=== PATIENT | female | born 1965 | race Caucasian/White ===

== ENCOUNTER 2016-09-09 05:27 | Emergency (ER) | payer BC ==
[~2016-09-09] VITALS: Ht 167.6 cm; Wt 77.2 kg
[2016-09-09] MEDS ORDERED: FLEXERIL5 MG PO (05:59)
[2016-09-09] MEDS ORDERED: LEVO-T75 MCG PO (05:59)
[2016-09-09] MEDS ORDERED: MELOXICAM15 MG PO (06:00)
[2016-09-09] MEDS ORDERED: LISINOPRIL20 MG PO (06:01)
[2016-09-09 06:43] VITALS: BP 118/76
== END 2016-09-09 06:43 | disposition home or self-care (01) ==
LOC: EME 05:27
DX: Z71.1 Person with feared health complaint in whom no diagnosis is made (principal); I10 Essential (primary) hypertension; Z88.2 Allergy status to sulfonamides
CPT/HCPCS: 99281; 99284